=== PATIENT | male | born 1980 | race Caucasian/White ===

== ENCOUNTER 2025-08-27 22:28 | Observation (INO) | payer OTHER, SELFPAY ==
[2025-08-27] VITALS (7 sets, daily range): BP systolic 115–132; BP diastolic 71–95; BMI 29.6; BMI 30.9
--- NOTE | 2025-08-27 18:02 | ED.GENMED ---
History of Present Illness
General
Chief Complaint: Back Pain
Source: patient and spouse
Exam Limitations: none
Time Seen by Provider: 08/27/25 17:43
History of Present Illness
History of Present Illness:
44yoM with no significant past medical history presenting with his for evaluation of back pain. Patient started to notice some low back soreness this morning. He was scheduled to have a bike race today but he did not compete due to his
symptoms. He was trying to sit down at one point and fell. He is presenting with pain primarily in his right lumbar region. He describes severe muscle spasms and states his back feels like it is locking in place. Sitting makes his symptoms
worse. He has not tried anything [id number]. He denies any history of back issues. 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 He denies any difficulty urinating, incontinence, paresthesias, fevers,. No
history of back surgeries, malignancy, or IV drug use.
Past History
Past History
ED Past Medical History: None
ED Past Surgical History: Appendectomy
Social History
Tobacco: Non-smoker
Alcohol: Occasional
Drug: None
Phy Exam
Physical Exam
Physical Exam:
Patient appears uncomfortable
General Physical Exam
General Presentation: well appearing and moderate distress
General Skin: warm and dry
General Habitus: normal
General Mental: alert
ENT Exam
ENT Exam: normocephalic
Cardiovascular Exam
Cardiovascular Exam: normal peripheral pulses (2+ PT pulses bilaterally)
Pulmonary Exam
Pulmonary Exam: no respiratory distress
Gastrointestinal Exam
Gastrointestinal Exam: non tender, soft and non distended
Neurological Exam
Neurological Exam: alert and other (4/5 strength with bilateral hip flexion (limited 2/2 back pain). 5/5 strength with plantar and dorsiflexion. )
Dave Coma Scale
Eye Opening: Spontaneous
Verbal Response: Oriented
Motor Response: Obeys Commands
GCS Total Score: 15
Skin Exam
Skin Exam: normal color and warm/dry
Psychiatric Exam
Psychiatric Exam: normal mood/affect
Course
Orders/Labs/Results
Orders:
Orders
08/27/25 17:59
CT Abd/pel Without Iv Or Oral Urgent
Comment:
Reason For Exam: R flank/back pain
0.9% Sodium Chloride 1000 ml [Nss] 1,000 ml IV BOLUS
Ketorolac [Toradol] 15 mg IV NOW STA
diazePAM [Valium Injection] 5 mg IV NOW STA
08/27/25 18:08
Complete Blood Count/With Diff Urgent
Comprehensive Metabolic Panel Urgent
Total CK [Creatine Phosphokinase] Urgent
08/27/25 18:33
Acetaminophen 1000MG/100Ml [Ofirmev] 1,000 mg in 100 ml IV ONCE
Acetaminophen IV Indication:: ED Narcotic Naive Pt-ONCE
HYDROmorphone [Dilaudid] 0.5 mg IV NOW STA
Ketorolac [Toradol] 15 mg IV NOW STA
08/27/25 20:20
diazePAM [Valium Injection] 5 mg IV NOW STA
08/27/25 20:59
Urinalysis Reflex To Culture Urgent
Date Specimen was Collected: 08/27/25
Time Specimen was Collected: 20:57
Comment: Clean catch
Urine Microscopic Reflex Cult Urgent
08/27/25 22:01
Admit/Transfer Patient As Directed
Co-Sign Provider:
Level of Care: Observation services
Assign to:: Medical/Surgical
Physician / Group: [email or web address]
Diagnosis: Acute severe lower Lx back pain complicated by acute gait dysfunction
08/27/25 22:02
Code Status As Directed
Resuscitation Status: Full Code
08/27/25 22:29
Oxycodone [Roxicodone] 5 mg PO Q4HPRN PRN
Abnormal Lab Results
08/27/25 08/27/25
18:08 20:59
RBC 4.64 L 10^6/uL
(4.70-6.10)
Lymphocytes % 18.8 L %
(20.5-51.1)
Ur Occult Blood Reflex 1+ A
(Negative)
08/27/25 18:08
08/27/25 18:08
Vital Signs
Initial and Last Documented VS:
Initial Vital Signs
Temp Pulse Resp BP Pulse Ox
98.4 F 71 20 132/95 98
08/27/25 16:43 08/27/25 16:43 08/27/25 16:43 08/27/25 16:43 08/27/25 16:43
Last Documented Vital Signs
Temp Pulse Resp BP Pulse Ox
98.4 F 71 20 128/82 96
08/27/25 16:43 08/27/25 16:43 08/27/25 16:43 08/27/25 22:00 08/27/25 22:30
MDM/Problems Addressed
Differential Diagnosis Includes:
44yoM here with low back pain. Started with a soreness but worsened acutely after falling. Pain described as severe and he is visibly uncomfortable on exam. No red flags in history including no fevers, saddle anesthesia, incontinence. Denies
radicular symptoms. Differential diagnosis includes: muscle spasm/strain, herniated disc, less likely fracture, consider kidney stone
Initial ED plan: Check CBC, CMP, CK, UA, and CT abdomen without contrast. IV Toradol and Valium for symptoms.
*Pulse Oximetry
SaO2: 98
Oxygen Mode of Delivery: Room air
Patient hypoxic: no
*Critical Care Note
Total Time (30-74mins, 75-104mins- exclusive of procedures): Not Applicable
Update Note
Update Note:
Labs unremarkable. CT is negative for acute findings. Specifically, there is no evidence of hydronephrosis, ureterolithiasis, or fractures. Patient ultimately received 15mg Toradol x2, 5mg Valium x2, 0.5mg IV Dilaudid, and IV Ofirmev with persistent
pain. He is unable to ambulate and as soon as he sits up, the severe spasms return. At this point, will admit for intractable symptoms.
ED Attending Note
-
Portions of this chart may have been created with voice recognition software.� Occasional wrong word or��sound alike� substitutions may have occurred due to the inherent limitations of voice recognition software.
Discharge Plan
Departure
Patient Disposition: Admit
Date of Disposition: 08/27/25
Time of Disposition: 21:43
Presentation/result/management discussed w/ accepting MD/DO: Hospitalist
Discharge Problem:
Intractable low back pain
Interventions
Interventions:
*Risk Screen - Suicide Last Done: 08/27/25 16:43
*General Assessment Last Done: 08/27/25 16:43
*Neglect/Abuse Screening Last Done: 08/27/25 18:13
*ED- Fall Risk Assessment Last Done: 08/27/25 18:13
*ED COVID-19 Vaccine History Last Done: 08/27/25 18:13
*ED Influenza Vaccine History Last Done: 08/27/25 18:13
ED-Musculoskeletal Assessment Last Done: 08/27/25 18:13
[2025-08-27] MEDS: VALIUM INJECTION 5 MG IV ×2 (18:09→20:25)
[2025-08-27] MEDS: NSS 1000 IV (18:09)
[2025-08-27] MEDS: TORADOL 15 MG IV ×2 (18:09→18:38)
[2025-08-27 18:21] LABS: Hematocrit 39.7 % (39.0-52.0); Hemoglobin 14.2 g/dL (13.0-18.0); Mean Corp Hgb Conc. 35.8 g/dL (33.0-37.0); Mean Corpuscular Volume 85.6 fL (80.0-94.0); Nucleated Red Blood Cells % 0 % (-); Platelet Count 188 10^3/uL (130-400); Red Cell Dist. Width 11.6 % (11.5-14.5)
[2025-08-27] MEDS: OFIRMEV 100 IV (18:38)
[2025-08-27] MEDS: DILAUDID 0.5 MG IV (18:38)
[2025-08-27 18:42] LABS: ALT (SGPT) 23 U/L (0-50); AST (SGOT) 22 U/L (17-59); Albumin 4.5 g/dl (3.5-5.0); Alkaline Phosphatase 65 U/L (38-126); Blood Urea Nitrogen 12 mg/dl (9-20); Calcium 9.5 mg/dl (8.4-10.2); Carbon Dioxide 25 mmol/L (22-30); Chloride 103 mmol/L (98-107); Estimated Creatinine Clearance > 125 ml/min; Glucose 93 mg/dl (70-99); Potassium 4.0 mmol/L (3.5-5.1); Sodium 135 mmol/L (135-145); Total Protein 7.1 g/dl (6.3-8.2); eGFR > 60.00
[2025-08-27 21:06] LABS: Urine Character Clear (Clear)
[2025-08-27 21:12] LABS: Urine Red Blood Cell 0-2 /HPF (0-2); Urine Squamous Cell None seen /LPF (Few); Urine White Cell None Seen /HPF (0-5)
--- NOTE | 2025-08-27 21:45 | HPS.HSE ---
Addendum entered and electronically signed by Lorenzo Alford MD 08/27/25 22:31:
CT AP:
- No acute pathology of the abdomen or pelvis identified.
- Small hepatic cyst.
- Diverticulosis.
- Moderate fecal material in the colon.
- Mild diffuse bladder wall thickening.
This can be seen with cystitis and bladder outlet obstruction.
- Mild prostate hypertrophy.
Original Note:
Family Physician
-
Family Physician: Perry Yuan
Chief Complaint
-
back pain.
History of Present Illness
HPI
44M No significant PMHX seen at ER:
- pw s for evaluation of back pain - primarily in R Lx region
- acute low back pain this morning has to cancel schedule bike race
- trying to sit down at one point and fell.
- severe muscle spasms feels like it is locking in place
- Sitting exacerbates symptoms
At ER:
IV Valium 5mg x 2
IV Dilaudid 0.5mg x 1
IV Toradol 15 mg x2
Report still having intractable pain and unable to ambulate.
He denies any HX back issues.
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
NO HX back surgeries, malignancy, or IV drug use.
ROS
denies any difficulty urinating, incontinence, paresthesias, fevers,
Medical History
Past Medical History
Past Medical History: Reports None
Past Surgical History: Reports None
Social History
Tobacco: Non-smoker
Alcohol: None
Family History
Family History: Not pertinent
Allergies / Home Medications
Allergies reflects when Allergies were last updated in [employer].
Home Medications with original date entered in [employer]
Allergy/Medication List:
Allergies
Allergy/AdvReac Type Severity Reaction Status Date / Time
NKA - No Known Allergies Allergy none Uncoded 08/27/25 16:43
Home Medications
No Meds [No Current Medications] 10/31/22
Review of Systems
-
Constitutional: Reports No Symptoms
EENT: Reports No Symptoms
Respiratory: Reports No Symptoms
Cardiac: Reports No Symptoms
Abdomen/GI: Reports No Symptoms
: Reports No Symptoms
Musculoskeletal: Reports See HPI
Skin: Reports No Symptoms
Neurological: Reports No Symptoms
Endocrine: Reports No Symptoms
Hematologic/Lymphatic: Reports No Symptoms
Psych: Reports No Symptoms
Physical Exam
Vital Signs
Vital Signs
Temp Pulse Resp BP Pulse Ox
98.4 F 71 20 125/78 98
08/27/25 16:43 08/27/25 16:43 08/27/25 16:43 08/27/25 21:10 08/27/25 21:15
Physical Exam
General: Well Developed and No Apparent Distress (at rest )
HEENT: NormoCephalic, Moist mucous membranes and Atraumatic
Respiratory: Clear
Cardiac: S1/S2 and Regular Rhythm; No Murmur or Rub
GI: Soft, Non Tender, Non Distended and Normal Bowel Sounds; No Organomegaly
Rectal: Deferred by Provider
Musculoskeletal: Other (No pain with LLEX SLR , Pain with R JAYLEEN SLR )
Skin: No Rash
Neuro: Awake, Alert, AO x 3 and Nonfocal/grossly intact
Psych: Calm
Laboratory Results
-
08/27/25 18:08
08/27/25 18:08
Laboratory Results
Total Bilirubin 0.7 mg/dl (0.2-1.3) 08/27/25 18:08
AST 22 U/L (17-59) 08/27/25 18:08
ALT 23 U/L (0-50) 08/27/25 18:08
Alkaline Phosphatase 65 U/L (38-126) 08/27/25 18:08
Data Reviewed
-
Lab Data: Labs Reviewed by me
Impression/Plan
-
Vital Signs
Temp Pulse Resp BP Pulse Ox
98.4 F 71 20 125/78 98
08/27/25 16:43 08/27/25 16:43 08/27/25 16:43 08/27/25 21:10 08/27/25 21:15
08/27/25
18:08
WBC 6.5
Creatinine 0.7
eGFR > 60.00
Creatine Kinase 134
NO PRIOR hospitalist admission:
ASSESSMENT & PLAN
Acute severe R lower Lx back pain suspect disc prolapse
- severe muscle spasm and subjective locking up the Lx spine
- denies any difficulty urinating, incontinence, paresthesias, no shooting pain
- Intractable pain despite IV Valium 5mg x 2 + IV Dilaudid 0.5mg x 1 + IV Toradol 15 mg x2
- reports gradually improving
- able to SLR
- Lx spine XR
- Prednisone short course tapering regime
60mg daily for 2days
40mg daily for 2 days
20mg daily for 2 days
10mg daily for 2 days
- MS relaxant
Zanaflex 4mg tid
- Local Lidoderm patch
- IV Dilaudid 1mg q4h PRN - hold for sedation
- PRN BW regime
- Encourage PO hydration
-PT/OT eval in AM
DVT Px: LMWH
Full code
OBS MS
[2025-08-27] MEDS: ROXICODONE 5 MG PO (22:33)
--- NOTE | 2025-08-27 23:45 | PTCARENOTE ---
Received patient from ED via stretcher. Patient ambulated from stretcher to bed with minimal assistance. No current complaints of pain. Oriented patient to room and placed call larose within reach.
[2025-08-27] MEDS: DELTASONE 60 MG PO (23:56)
[2025-08-28] MEDS: TORADOL 10 MG IV (06:38)
[2025-08-28 07:00] VITALS: BP 118/74
[2025-08-28] MEDS: LIDOCAINE 4% PATCH 1 PATCH TOPICAL (08:43)
[2025-08-28] MEDS: DELTASONE 60 MG PO (08:43)
[2025-08-28] MEDS: ZANAFLEX 2 MG PO ×2 (08:44→15:20)
--- NOTE | 2025-08-28 11:43 | CM ---
Patient seen at bedside on . patient with his . Patient states that [place] with 3 stories and many steps. Patient has no DME at home and no past needs for VN. Patient PCP is Dr. Yuan and he uses the [facility] on [address],
[place]. Patient given OBS form and signed form placed on chart. Patient plan is home with no needs, with questions about ortho consult. CM will update nursing and follow for discharge planning needs.
Plan; home with vn vs home with no needs.
--- NOTE | 2025-08-28 14:23 | W.DCSUMMARY ---
Discharge Summary
Discharge Data
Date of Admission: 08/27/25
Date of Discharge: 08/28/25
-
Pending Results: No
Hospital Course
Primary diagnosis:
Acute low back pain suspect secondary to disc collapse
Hospital course:
44-year-old gentleman with no significant past medical history presents with acute back pain. He always had a chronic back pain. On the day of presentation when he got up and was trying shoes he felt a little more intense pain in the back and then
when he took a ride to go for a cycling competition he experienced more more pain in the car. When he went to the venue he was in extreme pain and he could not stand and he laid down. There are intense spasms in the back which relax and he was
able to walk again. But on the way back in the car he had a sneeze and with that his pain become excruciatingly painful and so presented to the ER.
No motor deficits. No red flags. No evidence of renal stone. No acute pathology noted on the CT of the abdomen pelvis.
No motor deficits.
He was admitted for pain control. Was put on a dose of steroids, muscle relaxants and pain regimen. He improved with conservative management. He was seen by PT and there was no skilled need required.
He was advised to follow with his PCP if the conservative management fails.
On abdomen/pelvis CT there was mild bladder wall thickening and may be mild prostate enlargement. Denied any prostatic symptoms. He had his regular PSA done this year which apparently was normal.
Today his pain was less intense. He could participate with PT. Afebrile. Pulse was 52. Blood pressure 118/74. Neurologically nonfocal.
He was deemed stable for discharge today.
Portions of this chart may have been created with voice recognition software. Occasional wrong word or 'sound alike' substitutions may have occurred due to the inherent limitations of voice recognition software.
Discharge Plan
-
Patient Disposition: Home (Routine Discharge)
Discharge Diagnosis/Procedures: Acute low back pain suspected disc disease
Diet: Regular
Activity: As tolerated
Driving Restrictions: Not until seen by your Dr
Referrals:
Perry Yuan MD [Family Provider, Family Practice] - in less than 1 week
Additional Discharge Medication Instructions: Take ibuprofen preferably for pain than oxycodone; take Protonix for 10 days while on combination of steroids and pain medication
Prescriptions:
New
acetaminophen 325 mg Tablet
650 mg PO Q4HPRN PRN (Reason: mild pain/MAJOR/temp> 100.4F) Qty: 1 0RF
tizanidine 2 mg Tablet
2 mg PO TID PRN (Reason: muscle spasticity) Qty: 20 0RF
methylprednisolone [Medrol (Dav)] 4 mg tablets,dose pack
See Rx Instructions .ROUTE .COMPLEX Qty: 21 0RF
Rx Instructions:
orally per package directions
ibuprofen 600 mg tablet
600 mg PO TID PRN (Reason: Pain) Qty: 20 0RF
polyethylene glycol 3350 17 gram Powder In Packet
17 g PO DAILYPRN PRN (Reason: constipation) Qty: 14 0RF
oxycodone 5 mg Tablet
5 mg PO Q4HPRN PRN (Reason: severe pain) Qty: 20 0RF
pantoprazole [Protonix] 40 mg tablet,delayed release (DR/EC)
40 mg PO DAILY Qty: 10 0RF
Discharge Orders:
Discharge Patient (As Directed); Ordered 08/28/25
Ordered By: Pepe Joy
Discharge Date and Time
Print Language: PARAGUAYAN
[2025-08-28 15:00] VITALS: BP 132/79
== END 2025-08-28 16:43 | disposition home or self-care (01) ==
LOC: 4 EAST ACU 22:28
PROVIDERS: Physician Assistant; ADMITTING PHYSICIAN Internal Medicine; ATTENDING PHYSICIAN Internal Medicine; EMERGENCY PHYSICIAN Emergency Medicine; FAMILY PHYSICIAN Family Medicine
DX: M54.50 Low back pain, unspecified (principal); M62.838 Other muscle spasm; R26.9 Unspecified abnormalities of gait and mobility; K76.89 Other specified diseases of liver; K57.30 Diverticulosis of large intestine without perforation or abscess without bleeding; N32.89 Other specified disorders of bladder; N40.0 Benign prostatic hyperplasia without lower urinary tract symptoms; W19.XXXA Unspecified fall, initial encounter; Y93.9 Activity, unspecified; Y92.009 Unspecified place in unspecified non-institutional (private) residence as the place of occurrence of the external cause; G89.29 Other chronic pain; Z90.49 Acquired absence of other specified parts of digestive tract
CPT/HCPCS: 74176; 80053; 81003; 81015; 82550; 85025; 96361; 96374; 96375; 96376; 97161; 99285; G0378

== ENCOUNTER 2025-10-18 12:43 | Outpatient (RCR) | payer OTHER, SELFPAY | END 2025-10-18 23:59 | disposition home or self-care (01) | LOC: RPT 12:43 | PROVIDERS: ATTENDING PHYSICIAN Physician Assistant Medical | DX: M62.830 Muscle spasm of back (principal); Z73.6 Limitation of activities due to disability; R26.2 Difficulty in walking, not elsewhere classified; M54.50 Low back pain, unspecified; M62.81 Muscle weakness (generalized) | CPT/HCPCS: 97110; 97112; 97161 ==